=== PATIENT | male | born 1995 | race Caucasian/White ===

== ENCOUNTER 2021-09-27 13:03 | Emergency (ER) | payer OTHER ==
[~2021-09-27] VITALS: Ht 180.3 cm; Wt 75.0 kg
[2021-09-27 13:10] VITALS: BP 107/60
== END 2021-09-27 14:30 | disposition home or self-care (01) ==
LOC: ED 13:03
DX: S62.662A Nondisplaced fracture of distal phalanx of right middle finger, initial encounter for closed fracture (principal); F17.210 Nicotine dependence, cigarettes, uncomplicated; W23.1XXA Caught, crushed, jammed, or pinched between stationary objects, initial encounter; Y99.0 Civilian activity done for income or pay